=== PATIENT | male | born 1990 | race Caucasian/White ===

== ENCOUNTER 2024-12-09 19:45 | Emergency (ER) | payer OTHER, SELFPAY ==
--- OUTSIDE RECORDS SUMMARY | 2024-12-09 19:47 | XMS_ITS | Clinical Summary ---
Author Organization [facility] Address [address] [place] [address] Phone Care Team Providers Care Rolled Materials Worker Name Role Phone Provider, None Primary Care Provider Unavailabl e Allergies No known active allergies Medications albuterol (PROVENTIL HFA, VENTOLIN HFA) 108 (90 Base) MCG/ACT Aerosol Solution take 2 Puffs by inhalation every 4 hours as needed for Wheezing. Active albuterol (ACCUNEB) 0.63 MG/3ML Nebulizer Soln 0.63 mg by Nebulization route every 4 hours as needed for Wheezing. Active AMOXICILLIN PO Take by mouth. Active predniSONE (DELTASONE) 10 MG Tablet TAKE 4 TABLETS DAILY X3 DAYS THEN 3 TABLETS DAILY X3 DAYS THEN 2 TABLETS DAILY X3 DAYS THEN 1 TABLET DAILY X3 DAYS 30 Tab 9 Active azithromycin (ZITHROMAX) 250 MG Tablet 2 tab(s) daily for 1 day, then 1 tab(s) daily for days 2-5. 6 Tab 9 Active Social History Tobacco Use Types Packs/Day Years Used Date Smoking Tobacco: Every Day Cigarettes Smokeless Tobacco: Never Alcohol Use Standard Drinks/Week Comments No 0 (1 standard drink = 0.6 oz pur e alcohol) Sex and Gender Information Value Date Recorded Sex Assigned at Not on file Legal Sex Male 11:25 PM CDT Gender Identity Not on file Sexual Orientation Not on file Last Filed Vital Signs Vital Sign Reading Time Taken Comments Blood Pressure 134/64 10/26/2019 1:14 AM DISTRIBUTION SUPERINTENDENT Pulse 115 10/26/2019 1:14 AM DISTRIBUTION SUPERINTENDENT Temperature 37.6 ??C (99.7 ??F) 10/26/2019 12:[address] Respiratory Rate 23 10/26/2019 1:14 AM DISTRIBUTION SUPERINTENDENT Oxygen Saturation 92% 10/26/2019 1:14 AM DISTRIBUTION SUPERINTENDENT Inhaled Oxygen Concentration - - Weight 61.2 kg (135 lb) 10/25/2019 11:30 PM DISTRIBUTION SUPERINTENDENT Height 167.6 cm (5' 6 ) 10/25/2019 11:30 PM DISTRIBUTION SUPERINTENDENT Body Mass Index 21.79 10/25/2019 11:30 PM DISTRIBUTION SUPERINTENDENT Plan of Treatment Health Maintenance Due Date Last Done Comments Hepatitis C Virus (HCV) Screening 1989 TdaP Immunization 1989 Hepatitis B Immunization (1 of 3 - 19+ 3-dose series) 2008 Influenza Immunization (#1) 2024 SARS-COV-2 Immunization ( - 2023- season) 2024 Respiratory Syncytial Virus (RSV) Immunization (Adult) (1 - 1-dose 75+ series) 2064 Meningococcal Immunization (ACWY) Aged Out No longer eligible based on patient's age to complete this topic Pneumococcal Immunization Combined Aged Out No longer eligible based on patient's age to complete this topic Rotavirus Immunization Aged Out No lo nger eligible based on patient's age to complete this topic Care Teams Rolled Materials Worker Relationship Specialty Start Date End Date Provider, None [place] PCP - General 08/20/17
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
--- OUTSIDE RECORDS SUMMARY | 2024-12-09 19:48 | XMS_ITS | Clinical Summary ---
Author Organization [facility] Address [address] [place] [address] Care Team Providers Care Cctv Technician Name Role Phone Unavailable Primary Care Provider Unavailabl e Source Comments [facility],non-owned Affiliates and Associated Physician Practices is amultiple site organization consisting of ambulatory clinics and hospital sitesin [place], [place], [place]. This disclosure is being madepursuant to the Care Everywhere program and may not contain all information available regarding this patient. Last updated 18.[facility] Allergies No known active allergies Medications * [...] naloxone HCl (Narcan) 4 MG/0.1ML nasal spray [place] 1 (one) spray into the nose as [...] 04/23/2023 2:41 AM CDT Plan of Treatment Health Maintenance Due Date Last Done Comments HIV SCREENING 2004 HEPATITIS C SCREENING 10/01/2007 HEPATITIS B VACCINE (1 of 3 - 19+ 3-dose series) 2008 PNEUMOCOCCAL VACCINE (1 of 2 - PCV) 2008 COVID-19 VACCINE (2023-2 5 season) 2024 INFLUENZA VACCINE (#1) 2024 DEPRESSION SCREENING 11/09/2024 DTAP/TDAP/TD VACCINES (2 - T d or Tdap) 04/23/2033 04/23/2023 ZOSTER VACCINE (1 of 2) 2039 HIB VACCINE Aged Out No longer eligi ble based on patient's age to complete this topic HPV VACCINE Aged Out No longer eligi ble based on patient's age to complete this topic MENINGOCOCCAL (Group B) VACCINE Aged Out No longer eligible based on patient's age to complete this topic MENINGOCOCCAL VACCINE Aged Out No suzanne vin eligible based on patient's age to complete this topic Advance Directives * Full Code (Latest Code Status on File) Date Activated Date Inactivated Comments 04/23/2023 9:44 AM 04/24/2023 6:39 PM
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
--- OUTSIDE RECORDS SUMMARY | 2024-12-09 19:48 | XMS_ITS | Referral Summary ---
Author Organization [facility] Healthcare Address [address] [place] [address] Care Team Providers Care Analytic Programmer Name Role Phone No, Physician Primary Care Provider [phone] Annalee Rogers DPM Unavailable [phone] Allergies No known active allergies Medications albuterol [...] Current smoker Asthma 05/19/2016 Overview (02/12/2017): Asthma Social History Tobacco Use Types Packs/Day Years [...] on file Legal Sex Male 12:34 PM BYPRODUCTS MAKER Gender Identity Not on file Sexual Orientation [...] 05/02/2023 12:06 AM CDT Plan of Treatment Not on file Insurance [facility] Member Subscriber Plan / Payer (Ef fective 2022-Present) Name:Yang Perez Relation to Subscriber:Self Name:Yang Perez Payer ID:[id number] (NAIC) Group ID:Not on file Type:MEDICAID RISK OTHER Address: ATTN: CLAIMS DEPT [address] [facility] [place] [phone] Advance Directives For more information, please contact: [phone] * Full Code (Latest Code Status on File) Date Activated Date Inactivated Comments 05/02/2023 12:17 AM 05/05/2023 9:35 PM * Full Code Date Activated Date Inactivated Comments 04/30/2022 5:08 AM 05/01/2022 10:19 PM Care Teams Analytic Programmer Relationship Specialty Start Date End Date No, Physician PCP - General 05/01/23 Annalee Rogers DPM [address] [address] Consulting Physician Foot and Ankle Surg 05/05/23
[2024-12-09 19:50] VITALS: BP 134/72; PULSE 99; RESP 18; TEMP 37.2; O2SAT 100
--- NOTE | 2024-12-09 19:58 | ED_ITS ---
HPI - Dental/Oral General Chief complaint: Dental/Oral Stated complaint: jaw infection History of Present Illness HPI Narrative: patient is a male, significant past history, presents to [facility] lower dental pain facial swelling for the past 4 days. He denies associated fevers chills, has no sublingual swelling. He does have a dentist but has been unable to get in to see them thus far, prompting his EC visit. He denies any additional associated symptoms. He has been taking Tylenol as directed [id number] for pain with minimal relief. Related Data Allergies Allergy/AdvReac Type Severity Reaction Status Date / Time No Known Allergies Allergy Verified 12/09/24 19:55 Review of Systems 2 ENT: Reports as per HPI Exam 2 Const: General: cooperative, comfortable, no acute distress and poor hygiene Nutritional Appearance: average body habitus Orientation/consciousness: o riented to person Limitations: no limitations HENMT: Head: normal to inspection, No palpable skull fracture present and normocephalic Ears: hearing grossly normal bilaterally, external ears normal and TM's normal bilaterally Face and sinus: normal facial exam and sinuses nontender Teeth and gingiva: abnormal tooth and associated gingiva Teeth image: 1. Gross decay to all 3 teeth marked, swelling to the right mandible correlating with affected teeth, firm/nonfluctuant with percussion tenderness. Other: No sublingual swelling, no submental swelling or palpable node, no trismus Course Course Emergency Course: patient has abscess to the right lower dentition, follow-up with the dentist distress. Will treat with Augmentin b.i.d. for 10 days, patient is encouraged to use a probiotic [id number] diarrhea arises. Tylenol ibuprofen may be continued as directed [id number] for pain relief. Patient will contact his dentist Thursday. ER for sublingual swelling arises or if fevers are present. Patient is agreeable plan Level of Care: Express Care Visit ([id number]) Vital Signs Vital signs: Vital Signs Temperature 37.2 C 12/09/24 19:50 Pulse Rate 99 12/09/24 19:50 Respiratory Rate 18 12/09/24 19:50 Blood Pressure 134/72 12/09/24 19:50 Pulse Oximetry 100 12/09/24 19:50 Oxygen Delivery Room Air 12/09/24 19:50 Temperature 37.2 C 01/31/25 19:50 Pulse Rate 99 12/09/24 19:50 Respiratory Rate 18 12/09/24 19:50 Blood Pressure 134/72 12/09/24 19:50 Pulse Oximetry 100 12/09/24 19:50 Oxygen Delivery Room Air 12/09/24 19:50 MDM - Dental/Oral MDM Narrative Medical decision making narrative: Augmentin, APAP/ Motrin, dental follow-up, ER sublingual swelling arises or fevers are present. Patient is agreeable Differential Diagnosis Differential diagnosis: Likely gingival abscess, dental caries, toothache and dental abscess Discharge Plan Discharge Clinical Impression: Dental abscess Patient Disposition: Home, Self-Care Condition: Stable Instructions: Antibiotic Form, Dental Abscess (ED) Additional Instructions: START AND COMPLETE ORAL ANTIBIOTICS PRESCRIBED. IF HE DEVELOPS SWELLING BENEATH YOUR TONGUE, HIGH FEVERS OR HAVE ANY CONCERNS OR CONDITION IS WORSENING, PROCEED TO THE ER IMMEDIATELY. FOLLOW UP WITH A DENTIST OTHERWISE, MAY TAKE TYLENOL AND/OR IBUPROFEN DIRECTED [id number] FOR FEVERS AND DISCOMFORT Patient Language: Albanian Prescriptions: New amoxicillin-pot clavulanate 875-125 mg tablet 1 tablet PO Q12H Qty: 20 0RF Follow-up/Referrals: PHYSICIAN,MIXED CROP AND LIVESTOCK FARMER [Primary Care Provider] - Stand Alone Forms: Work/School Release IP Time of Disposition: 20:00
== END 2024-12-09 20:02 | disposition home or self-care (01) ==
PROVIDERS: Emergency Provider Nurse Practitioner Family
DX: K04.7 Periapical abscess without sinus (principal)
CPT/HCPCS: 99203; G0463

== ENCOUNTER 2025-02-06 13:49 | Emergency (ER) | payer OTHER, SELFPAY ==
[2025-02-06 13:56] VITALS: BP 139/75; PULSE 76; RESP 16; TEMP 37; O2SAT 98
--- NOTE | 2025-02-06 14:33 | ED_ITS ---
HPI - Dental/Oral General Chief complaint: Dental/Oral Stated complaint: tooth abcess Time Seen by Provider: 02/06/25 14:33 Source: patient, RN notes reviewed and old records reviewed Mode of arrival: ambulatory Limitations: no limitations History of Present Illness HPI Narrative: 34-year-old male presents to the [facility] with complaints of left lower dental pain, abscess. Had similar back in November has not followed up with a dental provider multiple decayed teeth Related Data Allergies Allergy/AdvReac Type Severity Reaction Status Date / Time No Known Allergies Allergy Verified 02/06/25 13:59 Review of Systems 2 Review of Systems: All systems reviewed & are unremarkable except as noted in HPI and below Constitutional: Constitutional: Reports no additional constitutional complaints ENT: Reports as per HPI and Reports dental pain Cardiovascular: Cardiovascular: Reports no additional cardiovascular complaints, Denies chest pain and Denies dyspnea Respiratory: Respiratory: Reports no additional respiratory complaints, Denies chest congestion, Denies cough and Denies dyspnea Musculoskeletal: Musculoskeletal: Reports no additional musculoskeletal complaints Integumentary/Breasts: Skin/Breast: Reports system reviewed and no additional complaints, except as docu PMFSH Comments At the time of my signature, I reviewed and agree with the nursing past medical, surgical, social, and family history. There is no relevant family history pertinent to the patient complaint. Exam 2 Const: General: cooperative, no acute distress, well developed, alert, uncomfortable and well nourished Nutritional Appearance: well nourished O rientation/consciousness: patient oriented x3 Limitations: no limitations HENMT: Head: normal to inspection Ears: hearing grossly normal bilaterally, external ears normal, TM's normal bilaterally, EAC's normal, mastoids normal and no periauricular adenopathy Mouth: Yes Normal oral and palatal mucosa present Teeth and gingiva: poor dentition ( throughout) Teeth image: 1. decayed, swollen gingiva Throat: posterior oropharynx normal, uvula midline and no uvular edema Eyes: General: appearance normal, both eyes and all related structures A lignment and Position: alignment normal Neck: Neck: normal visual inspection, full ROM, no lymphadenopathy and no meningeal signs Chest: Chest palpation & inspection: normal inspection of the chest Resp: Effort & Inspection: normal respiratory effort and able to speak in complete sentences Cardio: Rate: regular rate Skin: General skin exam: normal color and no rashes or lesions noted Neuro: General: patient oriented x3, gait normal, moves all extremities and no meningeal signs Cognition (Neuro): normal cognition Speech: normal speech Gait exam (Neuro): Normal gait present Extrem: General: normal to inspection, full ROM, capillary refill normal and normal gait Psych: Appearance: grossly normal and well kempt Mental Status: mental status grossly normal Speech and movement: Normal speech and movement present and Clear speech present Affect: normal affect Attitude: cooperative Course Course Level of Care: Express Care Visit Vital Signs Vital signs: Vital Signs Temperature 98.6 F 02/06/25 13:56 Pulse Rate 76 02/06/25 13:56 Respiratory Rate 16 02/06/25 13:56 Blood Pressure 139/75 02/06/25 13:56 Pulse Oximetry 98 02/06/25 13:56 Oxygen Delivery Room Air 02/06/25 13:56 Temperature 98.6 F 02/06/25 13:56 Pulse Rate 76 02/06/25 13:56 Respiratory Rate 16 02/06/25 13:56 Blood Pressure 139/75 02/06/25 13:56 Pulse Oximetry 98 02/06/25 13:56 Oxygen Delivery Room Air 02/06/25 13:56 Reviewed MDM - Dental/Oral MDM Narrative Medical decision making narrative: patient sitting in exam room. Nontoxic, vitals stable. Patient in no acute distress. Patient presents with a dental abscess, appropriate for outpatient treatment with antibiotic and close follow-up Discharge instructions reviewed with patient, as well as provided in writing per nursing staff. The instructions also include specific and strict return/GO TO THE ER as well as f/u information. All questions have been answered, and the patient deny any further questions with discharge and discharge plan. Some parts of this dictation were generated by voice recognition software and may contain typographical and/or grammatical inaccuracies. Differential Diagnosis Differential diagnosis: Likely gingival abscess, dental caries, toothache and dental abscess Critical Care Time Critical Care Time Critical Care Time: No Discharge Plan Discharge Clinical Impression: Dental abscess Patient Disposition: Home, Self-Care Condition: Stable Instructions: Antibiotic Form, Dental Abscess (ED) Additional Instructions: Finish the entire course of antibiotics & use a good mouthwash. After every time you eat be sure to use salt water rinses and brush your teeth Apply ice to face to help with pain. Take Tylenol alternating with Motrin as needed for pain. You can alternate every 4 hours You need to follow-up with a dental provider as soon as possible for further evaluation and treatment. A list of dental providers has been given to you Follow up with a Primary Care Provider (PCP) about medical needs. A PCP can help keep you healthy by preventive medicine and screening. Go to the ER for New or worsening symptoms. Patient Language: Indonesian Prescriptions: New clindamycin HCl [Cleocin HCl] 300 mg capsule 300 mg PO TID 7 Days Qty: 21 0RF Follow-up/Referrals: PHYSICIAN,WELDER APPRENTICE GAS [Primary Care Provider] - Time of Disposition: 14:42
--- OUTSIDE RECORDS SUMMARY | 2025-02-06 15:11 | XMS_ITS | Referral Summary ---
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 Gender Identity Not on file Sexual Orientation Not on file Last Filed Vital Signs Vital Sign Reading Time Taken Comments Blood Pressure 116/61 05/05/2023 3:00 PM CDT Pulse 85 05/05/2023 3:00 PM CDT Temperature 37.3 C (99.1 F) 05/05/2023 3:00 PM CDT Respiratory Rate 18 05/05/2023 3:00 PM CDT Oxygen Saturation 99% 05/05/2023 3:00 PM CDT Inhaled Oxygen Concentration - - Weight 56.2 kg (123 lb 14.4 oz) 023 12:06 AM CDT Height 172.7 cm (5' 8 ) 05/02/2023 12:0 6 AM CDT Body Mass Index 18.84 05/02/2023 12:06 AM CDT Plan of Treatment Not on file Insurance [facility] Advance Directives For more information, please contact: [phone] * Full Code (Latest Code Status on File) Date Activated Date Inactivated Comments 05/02/2023 12:17 AM 05/05/2023 9:35 PM * Full Code Date Activated Date Inactivated Comments 04/30/2022 5:08 AM 05/01/2022 10:19 PM Care Teams Financial Services Director Relationship Specialty Start Date End Date No, Physician PCP - General 05/01/23 Annalee Rogers DPM [address] [address] Consulting Physician Foot and Ankle Surg 05/05/23
--- OUTSIDE RECORDS SUMMARY | 2025-02-06 15:11 | XMS_ITS | Clinical Summary ---
Author Organization [facility] Address [address] [place] [address] Phone Care Team Providers Care Parking Line Painter Name Role Phone Provider, None Primary Care [...] Comments Blood Pressure 134/64 10/26/2019 1:14 AM FRETTED INSTRUMENT REPAIRER Pulse 115 10/26/2019 1:14 AM FRETTED INSTRUMENT REPAIRER Temperature 37.6 C (99.7 F) 10/26/2019 12:03 AM FRETTED INSTRUMENT REPAIRER Respiratory Rate 23 10/26/2019 1:14 AM FRETTED INSTRUMENT REPAIRER Oxygen Saturation 92% 10/26/2019 1:14 AM FRETTED INSTRUMENT REPAIRER Inhaled Oxygen Concentration - - Weight 61.2 kg (135 lb) 10/25/2019 11:30 PM FRETTED INSTRUMENT REPAIRER Height 167.6 cm (5' 6 ) 10/25/2019 11:30 PM FRETTED INSTRUMENT REPAIRER Body Mass Index 21.79 10/25/2019 11:30 PM FRETTED INSTRUMENT REPAIRER Plan of Treatment Health Maintenance Due Date [...] age to complete this topic Care Teams Parking Line Painter Relationship Specialty Start Date End Date Provider, None [place] PCP - General 08/20/17
--- OUTSIDE RECORDS SUMMARY | 2025-02-06 15:11 | XMS_ITS | Clinical Summary ---
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 Gender Identity Not on file Sexual [...] Depression Screening 1989 Hepatitis C Screening 1989 Varicella Vaccines (1 of 2 - 13+ 2-dose series) 2002 Hepatitis B Screening 2007 Regular Well Visit/Exam 18-64 2007 Pneumococcal vaccine <65 (1 of 2 - PCV) 2008 Influenza Vaccine (#1) 2024 DTaP/Tdap/Td Vaccine (2 - Td or Tdap) 04/23/2033 04/23/2023 HPV Vaccines Aged Out No longer eligi ble based on patient's age to complete this topic Insurance Member Subscriber Plan / Payer (Ef fective 2021-Present) Name:Yang Perez Relation to Subscriber:Self Name:Yang Perez Payer ID:[id number] (NAIC) Group ID:Not on file Type:MEDICAID RISK OTHER [address]: [address] [place] [address] [place] [address] [place] Advance Directives For more information, please contact: [phone] * Full Code (Latest Code Status on File) Date Activated Date Inactivated Comments 05/02/2023 12:17 AM 05/05/2023 9:35 PM * Full Code Date Activated Date Inactivated Comments 04/30/2022 5:08 AM 05/01/2022 10:19 PM Care Teams Java Developer Analyst Relationship Specialty Start Date End Date No, Physician PCP - General 05/01/23 Annalee Rogers, TINA [address] [facility] [address] [place] [address] Consulting Physician Foot and Ankle Surg 05/05/23
--- OUTSIDE RECORDS SUMMARY | 2025-02-06 15:11 | XMS_ITS | Clinical Summary ---
Author Organization [facility] Address [address] [place] [address] Care Team Providers Care Box Maker Wood Name Role Phone Unavailable Primary Care Provider Unavailabl e Source Comments [facility],non-owned Affiliates and Associated Physician Practices is amultiple site organization consisting of ambulatory clinics and hospital sitesin [place], [place], [place] and [place]. This disclosure is being madepursuant to the Care Everywhere program and may not contain all information available regarding this patient. Last updated 18.[facility] Allergies No known active allergies Medications * [...] naloxone HCl (Narcan) 4 MG/0.1ML nasal spray [place] 1 (one) spray into the nose as [...] 59 04/24/2023 7:34 AM CDT Temperature 36.7 C (98.1 F) 04/24/2023 7:34 AM CDT Respiratory Rate 18 04/24/2023 7:34 AM CDT [...] to complete this topic MENINGOCOCCAL (Group B) VACC INE SHARED DECISION-MAKING Aged Out No longer eligibl e based on patient's age to complete this topic MENINGOCOCCAL GROUPS A/C/Y/W VACCINE Aged Out No longer eligible b ased on patient's age to complete this topic Advance Directives * Full Code (Latest Code Status on File) Date Activated Date Inactivated Comments 04/23/2023 9:44 AM 04/24/2023 6:39 PM
== END 2025-02-06 14:46 | disposition home or self-care (01) ==
PROVIDERS: Emergency Provider Nurse Practitioner
DX: K04.7 Periapical abscess without sinus (principal)
CPT/HCPCS: 99213; G0463

== ENCOUNTER 2025-09-07 11:48 | Emergency (ER) | payer OTHER, SELFPAY ==
[2025-09-07 11:55] VITALS: BP 133/62; PULSE 94; RESP 18; TEMP 37.2; O2SAT 98
--- NOTE | 2025-09-07 12:12 | ED.SKABFB ---
HPI - Skin/Abscess/Foreign Bdy General Chief complaint: Skin/Abscess/Foreign Body Stated complaint: infection on side Time Seen by Provider: 09/07/25 12:12 Source: patient, RN notes reviewed and old records reviewed Mode of arrival: ambulatory Limitations: no limitations History of Present Illness HPI narrative: 34-year-old male presents to the [facility] with a 10 day history of redness , pain, increased warmth to the right hip. Onset (ago): day(s) (10) Treatments prior to arrival: none Related Data Home Medications ?Medication ?Instructions ?Recorded ?Confirmed ?Last Taken ?Type No Home Medications 09/07/25 Unknown History Allergies Allergy/AdvReac Type Severity Reaction Status Date / Time amoxicillin Allergy Unknown Unknown Verified 09/07/25 12:00 Review of Systems Review of Systems: All systems reviewed & are unremarkable except as noted in HPI and below Constitutional: Constitutional: Reports no additional constitutional complaints Cardiovascular: Cardiovascular: Reports no additional cardiovascular complaints, Denies chest pain and Denies dyspnea Respiratory: Respiratory: Reports no additional respiratory complaints, Denies chest congestion, Denies cough and Denies dyspnea Musculoskeletal: Musculoskeletal: Reports as per HPI, Reports arthralgias ( right hip) and Reports joint swelling ( right hip) Integumentary/Breasts: Skin/Breast: Reports as per HPI, Reports erythema, Reports skin pain and Reports skin swelling PMFSH Comments At the time of my signature, I reviewed and agree with the nursing past medical, surgical, social, and family history. There is no relevant family history pertinent to the patient complaint. Exam Const: General: cooperative, no acute distress, well developed, alert, ill appearing chronically, poor hygiene, tired appearing, uncomfortable and well nourished Nutritional Appearance: well nourished Orientation/consciousness: patient oriented x3 Limitations: no limitations HENMT: Head: normal to inspection Eyes: General: appearance normal, both eyes and all related structures Alignment and Position: alignment normal Neck: Neck: normal visual inspection, full ROM, no lymphadenopathy and no meningeal signs Chest: Chest palpation & inspection: normal inspection of the chest Resp: Effort & Inspection: normal respiratory effort and able to speak in complete sentences Cardio: Rate: regular rate GI: GI Palp: No abdominal tenderness Skin: General skin exam: normal color and no rashes or lesions noted Full body images:  1. 18 x 19 cm redness, center firm swelling measures 15 x 16 cm. area is hot to touch. Tender to palpation. Neuro: General: patient oriented x3, gait normal, moves all extremities and no meningeal signs Cognition (Neuro): normal cognition Speech: normal speech Gait exam (Neuro): Normal gait present Extrem: General: normal to inspection, full ROM, capillary refill normal and normal gait Right lower extremity: hip/thigh Details: tenderness, swelling, abnormal ROM Details: pain with active ROM during and warmth; no deformity Psych: Appearance: grossly normal and well kempt Mental Status: mental status grossly normal Speech and movement: Normal speech and movement present and Clear speech present Affect: normal affect Attitude: cooperative Course Course Level of Care: Express Care Visit Vital Signs Vital signs: Vital Signs Temperature 99.0 F 09/07/25 11:55 Pulse Rate 94 09/07/25 11:55 Respiratory Rate 18 09/07/25 11:55 Blood Pressure 133/62 09/07/25 11:55 Pulse Oximetry 98 09/07/25 11:55 Oxygen Delivery Room Air 09/07/25 11:55 Temperature 99.0 F 09/07/25 11:55 Pulse Rate 94 09/07/25 11:55 Respiratory Rate 18 09/07/25 11:55 Blood Pressure 133/62 09/07/25 11:55 Pulse Oximetry 98 09/07/25 11:55 Oxygen Delivery Room Air 09/07/25 11:55 Reviewed Transfer Transfered to: [facility]) ( Per patient request) Transportation: Other ( POV per patient request, declined EMS) Transfer rationale: patient with significant cellulitis, concern for abscess in the right hip sending for higher level of care Accepting physician: Wilmer garcia MDM - Skin/Abscess/Foreign Bdy MDM Narrative Medical decision making narrative: patient appears uncomfortable sitting in exam room. Patient with significant cellulitis to the right hip for 10 days. Sending for higher level of care rule out abscess. Transfer instructions reviewed with patient not to eat or drink. EMS was offered patient declined. All questions have been answered, and the patient deny any further questions Some parts of this dictation were generated by voice recognition software and may contain typographical and/or grammatical inaccuracies. Differential Diagnosis Differential diagnosis: Likely abscess of skin or subcutaneous tissue, urticaria, herpes zoster, allergic reaction to drug, cellulitis, eczema and contact dermatitis Critical Care Time Critical Care Time Critical Care Time: No Discharge Plan Discharge Clinical Impression: Cellulitis Qualifiers: Site of cellulitis: extremity Site of cellulitis of extremity: lower extremity Laterality: right Qualified Code(s): L03.115 - Cellulitis of right lower limb Patient Disposition: Acute Care Hospital Condition: Stable Instructions: Antibiotic Form Patient Language: Finnish Prescriptions: No Action No Home Medications Follow-up/Referrals: PHYSICIAN,MACHINE MAINTENANCE TECHNICIAN [Primary Care Provider, Internal Medicine]
--- OUTSIDE RECORDS SUMMARY | 2025-09-07 12:51 | XMS_ITS | Clinical Summary ---
Author Organization [facility] Address [address] [place] [address] Phone Care Team Providers Care Shell Coremaker Name Role Phone Provider, None Primary Care [...] Comments Blood Pressure 134/64 10/26/2019 1:14 AM FIRE EXTINGUISHER TESTER Pulse 115 10/26/2019 1:14 AM FIRE EXTINGUISHER TESTER Temperature 37.6 C (99.7 F) 10/26/2019 12:03 AM FIRE EXTINGUISHER TESTER Respiratory Rate 23 10/26/2019 1:14 AM FIRE EXTINGUISHER TESTER Oxygen Saturation 92% 10/26/2019 1:14 AM FIRE EXTINGUISHER TESTER Inhaled Oxygen Concentration - - Weight 61.2 kg (135 lb) 10/25/2019 11:30 PM FIRE EXTINGUISHER TESTER Height 167.6 cm (5' 6) 10/25/2019 11:30 PM FIRE EXTINGUISHER TESTER Body Mass Index 21.79 10/25/2019 11:30 PM FIRE EXTINGUISHER TESTER Plan of Treatment Health Maintenance Due Date Last Done Comments Hepatitis C Virus (HCV) Screening 1989 TdaP Immunization 1989 Hepatitis B Immunization (1 of 3 - 19+ 3-dose series) 2008 Human Papillomavirus (HPV) Immunization (1 - 3-dose SCDM series) 2016 Influenza Immunization (#1) 2025 SARS-COV-2 Immunization ( - 2023- season) 2025 Respiratory Syncytial Virus (RSV) Immunization (Adult) (1 - 1-dose 75+ series) 2064 Meningococcal Immunization (ACWY) Aged Out No longer eligible based on patient's age to complete this topic Pneumococcal Immunization Combined Aged Out No longer eligible based on patient's age to complete this topic Rotavirus Immunization Aged Out No lo nger eligible based on patient's age to complete this topic Care Teams Shell Coremaker Relationship Specialty Start Date End Date Provider, None [place] PCP - General 08/20/17
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
--- OUTSIDE RECORDS SUMMARY | 2025-09-07 12:52 | XMS_ITS | Clinical Summary ---
Author Organization [facility] Healthcare Address [address] [place] [address] Care Team Providers Care Trial Management Associate Name Role Phone No, Physician Primary Care Provider [phone] Annalee Rogers DPM Unavailable [phone] Allergies No known active allergies Medications albuterol HFA (PROVENTIL HFA,VENTOLIN HFA,PROAIR HFA) 90 mcg/actuation inhaler Inhale 2 puffs every 6 (six) hours as needed for wheezing Active acetaminophen (TYLENOL) 500 mg tablet Take 2 tablets (1,000 mg total) by mouth every 6 (six) hours 04/24/[address] (PROTONIX) 20 mg EC tablet Take 1 tablet (20 mg total) by mouth daily 30 tablet 07/15/2025 Active Active Problems Problem Noted Date Diagnosed Date VICKIE (acute kidney injury) 05/05/2023 Substance use disorder 05/05/2023 Cellulitis of left lower extremity 05/01/2023 Respiratory distress 04/30/2022 Clavicle pain 05/19/2016 Overview (02/12/2017): Clavicle pain Shoulder pain 05/19/2016 Overview (02/12/2017): Shoulder pain Current smoker 05/19/2016 Overview (02/12/2017): Current smoker Asthma 05/19/2016 Overview (02/12/2017): Asthma Encounters Date Type Department Care Team Description 07/21/2025 9:44 PM CDT - 07/21/2025 11:25 PM CDT Emergency [facility] Emergency Department [address] [place] [address] Discharge Disposition: Left without being seen 07/15/2025 7:11 AM CDT - 07/15/2025 11:34 AM CDT Emergency [facility] Emergency Department [address] [place] [address] Edd Moore MD Abdominal pain of unknown etiology (Primary Dx); Urinary tract infection in male Discharge Disposition: Discharge to home or self care 07/15/2025 6:55 AM CDT - 07/15/2025 11:59 PM CDT Hospital Encounter [facility] Emergency, Room R Discharge Disposition: Discharge to home or self care from Last 3 Months Surgical History Surgery Date Site/Laterality Comments HERNIA [...] making you feel afraid or unsafe? Denies 07/21/2025 Sex and Gender Information Value Date Recorded Sex Assigned at Not on file Legal Sex Male 12:34 PM [employer] Gender Identity Not on file Sexual Orientation Not on file Obstetrics History Last Filed Vital Signs Vital Sign Reading Time Taken Comments Blood Pressure 157/83 07/21/2025 9:49 PM CDT Pulse 103 07/21/2025 9:49 PM CDT Temperature 37.2 C (98.9 F) 07/21/2025 9:49 PM CDT Respiratory Rate 18 07/21/2025 9:49 PM CDT Oxygen Saturation 95% 07/21/2025 9:49 PM CDT Inhaled Oxygen Concentration - - Weight 59 kg (130 lb) 07/21/2025 9:49 PM CDT Height 165.1 cm (5' 5) 07/21/2025 9:49 PM CDT Body Mass Index 21.63 07/21/2025 9:49 PM CDT Plan of Treatment Health Maintenance Due Date Last Done Comments Depression Screening 1989 Hepatitis C Screening 1989 Varicella Vaccines (1 of 2 - 13+ 2-dose series) 2001 Hepatitis B Screening 2007 Regular Well Visit/Exam 18-64 2007 Pneumococcal vaccine <65 (1 of 2 - PCV) 2008 HPV Vaccines (1 - 3-dose SCDM series) 2016 Influenza Vaccine (#1) 2025 DTaP/Tdap/Td Vaccine (2 - Td or Tdap) 04/23/2033 Procedures Procedure Name Priority Date/Time Associated Diagnosis Comments ECG 12-LEAD Routine 07/21/2025 9:[address] CHEST ABDOMEN PELVIS W CONTRAST ED 07/15/2025 10:14 AM CDT EGFR STAT 07/15/2025 8:39 AM CDT DIFFERENTIAL AUTO STAT 07/15/2025 8:3 9 AM CDT SEPSIS LACTATE WITH REFLEX STAT 07/15/2025 8:39 AM CDT LIPASE STAT 07/15/2025 8:39 AM CDT CBC WITH AUTO DIFFERENTIAL STAT 07/15/2025 8:39 AM CDT COMPREHENSIVE METABOLIC PANEL STAT 07/15/2025 8:39 AM CDT URINALYSIS, MICROSCOPIC ONLY STAT 07/15/2025 8:25 AM CDT DRUGS OF ABUSE SCREEN, URINE WITHOUT CONFIRMATION STAT 07/15/2025 8:25 AM CDT URINE CULTURE STAT 07/15/2025 8:25 AM CDT URINALYSIS AND REFLEX TO MICROSCOPIC AND CULTURE STAT 07/15/2025 8:25 AM CDT from Last 3 Months Results * ECG 12 lead (07/21/2025 9:54 PM CDT) 07/21/2025 9:54 PM CDT Narrative [facility] - 07/22/2025 10:43 AM CDT Vent Rate: 97 bpm RR Interval: 614 msec AR Interval: 117 msec QRS Duration: 76 msec QT Interval: 333 msec QTC Interval: 388 msec P-R-T Lyons: 71 - 66 - 57 degrees IMPRESSION: SINUS RHYTHM WITH SHORT AR INTERVAL BORDERLINE ECG NO CHANGE FROM PREVIOUS TRACING NOTED Electronically Signed By: Alejandro Lopez MD us Randy WATERS ECG ORDERABLES Final Result [facility] * CT Chest Abdomen Pelvis W Contrast (07/15/2025 10:14 AM CDT) Anatomical Region Laterality Modality Body N/A Computed Tomogra phy 07/15/2025 10:3 6 AM CDT Narrative 07/15/2025 10:42 AM CDT EXAM DESCRIPTION: CT CHEST ABDOMEN PELVIS W CONTRAST REASON FOR STUDY: Sepsis Low abdomen pain that started this am, trouble urinating TECHNIQUE: CT scan of the chest, abdomen, and pelvis performed with intravenous and without oral contrast using helical scanning technique with dynamic intravenous contrast injection. Reconstructed coronal and sagittal MPR images reviewed. All images stored on PACS. Automated exposure control was used as a dose optimization technique for this examination. CONTRAST TYPE/DOSE: 100mL of IOVERSOL 350 MG IODINE/ML INTRAVENOUS SYRINGE injected via intravenous COMPARISON: CT dated April 30, 2022 FINDINGS: CHEST LUNGS: No nodules or masses. No pneumonia. PLEURA: No effusion. No pneumothorax. MEDIASTINUM/MARCOS: No identified masses or abnormal nodes. HEART: Heart size is normal with no pericardial effusion. VASCULATURE CHEST: No thoracic aortic aneurysm or dissection. AXILLA: Subcentimeter axillary lymph nodes. CHEST WALL: No masses. No subcutaneous air. HARDWARE/LINES/TUBES: None. MUSCULOSKELETAL CHEST: No significant abnormality. ABDOMEN/PELVIS LIVER: Normal size. No identified cystic or solid masses. GALLBLADDER: No stones identified. No wall thickening or inflammatory changes. BILE DUCTS: No intrahepatic or extrahepatic ductal dilatation. SPLEEN: Normal size. No focal lesions. PANCREAS: No identified cystic or solid masses. No significant calcifications. No adjacent inflammation or peripancreatic fluid collections. Pancreatic duct not dilated. ADRENALS: Normal. KIDNEYS/URINARY TRACT: No identified significant cystic or solid masses. No visualized stones. No hydronephrosis or hydroureter. Symmetric enhancement. Urinary bladder is unremarkable. GI: No dilated bowel loops. No obvious wall thickening. Normal appendix. No significant diverticular disease. PERITONEUM: No ascites or free air. RETROPERITONEUM: No mass or adenopathy. REPRODUCTIVE: No significant abnormality. VASCULATURE ABDOMEN: No abdominal aortic aneurysm. MUSCULOSKELETAL ABDOMEN PELVIS: No acute finding. OTHER: No significant abnormality. IMPRESSION: 1. No acute findings identified to suggest etiology of the patient's symptoms. THIS IS AN ELECTRONICALLY VERIFIED FINAL REPORT 07/15/2025 10:42 AM - Electronically signed by Rickey Crain M.D. JA: NAYANA Report ID: [id number] Reading Location: [id number] Procedure Note Rickey Crain MD - 07/15/2025 EXAM DESCRIPTION: CT CHEST ABDOMEN PELVIS W CONTRAST REASON FOR STUDY: Sepsis Low abdomen pain that started this am, trouble urinating TECHNIQUE: CT scan of the chest, abdomen, and pelvis performed with intravenous and without oral contrast using helical scanning techniquewith dynamic intravenous contrast injection. Reconstructed coronal and sagittalMPR images reviewed. All images stored on PACS. Automated exposure control was used as a dose optimization technique for this examination. CONTRAST TYPE/DOSE: 100mL of IOVERSOL 350 MG IODINE/ML INTRAVENOUS SYRINGE injected via intravenous COMPARISON: CT dated April 30, 2022 FINDINGS: CHEST LUNGS: No nodules or masses. No pneumonia. PLEURA: No effusion. No pneumothorax. MEDIASTINUM/MARCOS: No identified masses or abnormal nodes. HEART: Heart size is normal with no pericardial effusion. VASCULATURE CHEST: No thoracic aortic aneurysm or dissection. AXILLA: Subcentimeter axillary lymph nodes. CHEST WALL: No masses. No subcutaneous air. HARDWARE/LINES/TUBES: None. MUSCULOSKELETAL CHEST: No significant abnormality. ABDOMEN/PELVIS LIVER: Normal size. No identified cystic or solid masses. GALLBLADDER: No stones identified. No wall thickening or inflammatory changes. BILE DUCTS: No intrahepatic or extrahepatic ductal dilatation. SPLEEN: Normal size. No focal lesions. PANCREAS: No identified cystic or solid masses. No significant calcifications. No adjacent inflammation or peripancreatic fluidcollections. Pancreatic duct not dilated. ADRENALS: Normal. KIDNEYS/URINARY TRACT: No identified significant cystic or solid masses.No visualized stones. No hydronephrosis or hydroureter. Symmetricenhancement. Urinary bladder is unremarkable. GI: No dilated bowel loops. No obvious wall thickening. Normalappendix. No significant diverticular disease. PERITONEUM: No ascites or free air. RETROPERITONEUM: No mass or adenopathy. REPRODUCTIVE: No significant abnormality. VASCULATURE ABDOMEN: No abdominal aortic aneurysm. MUSCULOSKELETAL ABDOMEN PELVIS: No acute finding. OTHER: No significant abnormality. IMPRESSION: 1. No acute findings identified to suggest etiology of the patient's symptoms. THIS IS AN ELECTRONICALLY VERIFIED FINAL REPORT 07/15/2025 10:42 AM - Electronically signed by Rickey Crain M.D. JA: NAYANA Report ID: [id number] Reading Location: [id number] Edd Moore MD IMG CT PROCEDURES Final Resu lt * Sepsis Lactate w/ Reflex (07/15/2025 8:39 AM CDT) Sepsis Lactate 1.7 0.7 - 2.0 mmol/L Blood 07/15/2025 8:39 AM CDT 07/15/2025 8:44 AM CDT Edd Moore MD LAB BLOOD ORDERABLES Final R esult Performing Organization Address City/[facility]/ZIP Co de Phone Number VALERIA WR[facility] ([place]) [address] [facility] [email or web address] [address] * eGFR (07/15/2025 8:39 AM CDT) eGFR >90 >=60 mL/min/1. 73 m2 Comment: Interpretive Data Reference Interval Normal >/= 90 mL/min/1.73m2 Mildly decreased* 60 - 89 mL/min/1.73m2 Mildly to moderately decreased 45 - 59 mL/min/1.73m2 Moderately to severely decreased 30 - 44 mL/min/1.73m2 Severely decreased 15 - 29 mL/min/1.73m2 Kidney Failure < 15 mL/min/1.73m2 *Relative to young adult level Estimated glomerular filtration rate is determined by the 2020 CKD-EPI equation recommended by the National Kidney Foundation (A Unifying Approach to GFR Estimation: Recommendations of the NKF-ASK Task Force on Reassessing the Inclusion of Race in Diagnosing Kidney Disease, JASN 2020). The CKD-EPI equation should not be used for patients with unstable renal function and has not been validated in children and those over 70. Current interpretive data was last reviewed 2021. Blood 07/15/2025 8:39 AM CDT 07/15/2025 8:44 AM CDT Edd Moore MD LAB BLOOD ORDERABLES Final R esult [facility] ([place]) 1 [facility] Department [place] [address] * (ABNORMAL) Differential, auto (07/15/2025 8:39 AM CDT) Neutrophil abs 14.05(H) 1.50 - 6.50 K/cumm Imm gran abs 0.11(H) 0.00 - 0.10 K/cumm [facility] ([place]) Lymphocyte abs 1.73 0.80 - 3.30 K/cumm [facility] ([place]) Monocyte abs 0.58 0.20 - 0.80 K/cumm [facility] ([place]) Eosinophil abs 0.07 0.00 - 0.50 K/cumm [facility] ([place]) Basophil abs 0.07 0.00 - 0.10 K/cumm [facility] ([place]) Neutrophil pct 84.6 % [facility] ([place]) Comment: Interpretive Data Percent cell count reference ranges are not reported, since discordance with absolute values may lead to misinterpretation of CBC data. Current Interpretive Data was last revised on 2018. Imm gran pct 0.7 % [facility] ([place]) Comment: Interpretive Data Percent cell count reference ranges are not reported, since discordance with absolute values may lead to misinterpretation of CBC data. Current Interpretive Data was last revised on 2018. Lymphocyte pct 10.4 % [facility] ([place]) Comment: Interpretive Data Percent cell count reference ranges are not reported, since discordance with absolute values may lead to misinterpretation of CBC data. Current Interpretive Data was last revised on 2018. Monocyte pct 3.5 % [facility] ([place]) Comment: Interpretive Data Percent cell count reference ranges are not reported, since discordance with absolute values may lead to misinterpretation of CBC data. Current Interpretive Data was last revised on 2018. Eosinophil pct 0.4 % [facility] ([place]) Comment: Interpretive Data Percent cell count reference ranges are not reported, since discordance with absolute values may lead to misinterpretation of CBC data. Current Interpretive Data was last revised on 2018. Basophil pct 0.4 % [facility] ([place]) Comment: Interpretive Data Percent cell count reference ranges are not reported, since discordance with absolute values may lead to misinterpretation of CBC data. Current Interpretive Data was last revised on 2018. Blood 07/15/2025 8:39 AM CDT 07/15/2025 8:44 AM CDT us Edd Moore MD LAB BLOOD ORDERABLES Final R esult [facility] ([place]) 1 [facility] Department [place] [address] * (ABNORMAL) CBC with auto differential (07/15/2025 8:39 AM CDT) Pathologist [facility] WBC 16.61(H) 3.80 - 9.90 K/cumm Hgb 12.9(L) 13.0 - 17.5 g/dL [facility] ([place]) Hct 39.4 38.9 - 50.3 % [facility] ([place]) Plt 307 150 - 400 K/cumm [facility] ([place]) MPV 9.4 9.1 - 12.3 fL [facility] [place]) RBC 4.30 4.30 - 5.80 M/cumm [facility] ([place]) MCV 91.6 81.3 - 96.4 fL [facility] [place]) MCH 30.0 27.1 - 33.3 pg [facility] [place]) MCHC 32.7 32.3 - 35.7 g/dL [facility] [place]) RDW CV 13.2 11.1 - 14.9 % [facility] ([place]) RDW SD 44.8 35.7 - 48.1 fL [facility] [place]) NRBC abs 0.00 0.00 - 0.01 K/cumm [facility] [place]) Blood 07/15/2025 8:39 AM CDT 07/15/2025 8:44 AM CDT Edd Moore MD LAB BLOOD ORDERABLES Final R esult [facility] ([place]) 1 [facility] Department [place] [address] * Lipase (07/15/2025 8:39 AM CDT) Pathologist [facility] Lipase 15 10 - 99 Units/L [facility] ([place]) Blood 07/15/2025 8:39 AM CDT 07/15/2025 8:44 AM CDT Edd Moore MD LAB BLOOD ORDERABLES Final R esult [facility] ([place]) 1 [facility] Department [place] [address] * (ABNORMAL) Comprehensive metabolic panel (07/15/2025 8:39 AM CDT) Sodium 139 135 - 145 mmol/L [facility] ([place]) Potassium, pl 4.2 3.3 - 4.9 mmol/L [facility] [place]) Chloride 101 97 - 110 mmol/L [facility] [place]) CO2 25 22 - 32 mmol/L [facility] [place]) Anion gap 13 2 - 15 mmol/L [facility] [place]) BUN 17 6 - 25 mg/dL [facility] [place]) Creatinine 1.09 0.80 - 1.30 mg/dL [facility] ([place]) Glucose 185 70 - 199 mg/dL [facility] ([place]) Comment: Interpretive Data Fasting glucose >/= 126 mg/dl is diagnostic for diabetes. Fasting is defined as no caloric intake for at least 8 hours. Fasting glucose between 100 mg/dl to 125 mg/dl is diagnostic of prediabetes. In a patient with classic symptoms of hyperglycemia or hyperglycemic crisis, a random glucose >/= 200 mg/dl is diagnostic for diabetes. In the absence of unequivocal hyperglycemia, results should be confirmed by repeat testing. The classification and Diagnosis of Diabetes Diabetes Care 2021; 46: S19-S40. Current interpretive data was last revised 2022. Calcium 10.3 8.5 - 10.3 mg/dL [facility]) Bilirubin, total 0.3 0.1 - 1.2 mg/dL [facility] ([place]) Protein, pl 8.1 6.5 - 8.5 g/dL [facility] ([place]) Albumin 4.5 3.5 - 5.0 g/dL [facility] ([place]) Alk phos 74 40 - 130 Units/L [facility] [place]) ALT 95(H) 7 - 55 Units/L [facility] [place]) AST 70(H) 10 - 50 Units/L [facility] ([place]) Blood 07/15/2025 8:39 AM CDT 07/15/2025 8:44 AM CDT Edd Moore MD LAB BLOOD ORDERABLES Final R esult Performing Organization Address City/[facility]/ZIP Co de Phone Number VALERIA WR[facility] ([place]) 1 [facility] Department [place] [address] * (ABNORMAL) Urinalysis reflex to microscopic and culture Urine (07/15/2025 8:25 AM CDT) Color, ur Yellow Yellow Clarity, ur Turbid(A) Clear [facility] ([place]) Specific gravity, ur 1.018 1.003 - 1.030 [facility] ([place]) pH, urine 7.5 [facility] [place]) Comment: Interpretive Data U rine pH is affected by diet, medications, systemic acid-base disturbances, and renal tubular function. pH may affect urinary stone formation. For example, urine pH below 6.0 may help reduce the tendency for calcium phosphate stones and pH greater than 6.0 may reduce the tendency for uric acid stone formation. Source: [email or web address] Current Interpretive Data was last revised on 2017 Protein, ur ql Negative Negative [facility] [place]) Glucose, ur ql Negative Negative [facility] ([place]) Ketones, ur Negative Negative [facility] ([place]) Bilirubin, ur Negative Negative [facility] ([place]) Blood, ur 2+(A) Negative [facility] ([place]) Urobilinogen, ur <2.0 <2.0 mg/dL [facility] ([place]) Nitrite, ur Negative Negative [facility] ([place]) Leukocyte esterase, ur Negative Negative [facility] ([place]) UA reflex comment Reflex to microscopic UA will be performed. [facility] ([place]) Urine 07/15/2025 8:25 AM CDT 07/15/2025 10:06 AM CDT Edd Moore MD LAB MICROBIOLOGY - GENERAL O RDERABLES Final Result [facility] ([place]) 1 [facility] Department [place] [address] * (ABNORMAL) Drugs of Abuse Screen, Urine without Confirmation (07/15/2025 8:25 AM CDT) Amphetamine, ur Screen Positive, presumptive (A) CutOff 500ng/mL [facility] ([place]) Comment: Interpretive Data - Amphetamines: Samples containing greater than 500 ng/mL d-methamphetamine or other cross-reacting amphetamine compounds are reported as positive. Amphetamine immunoassays are subject to significant false positive rates due to cross-reactivity of non-amphetamine drugs. Confirmatory testing required for definitive results. Current Interpretive Data was last reviewed 2023. Barbiturates, ur Not Detected CutOff 200ng/mL [facility] ([place]) Comment: Interpretive Data - Barbiturates: Samples containing greater than 200 ng/mL secobarbital or other cross-reacting barbiturate compounds are reported as positive. False positive and false negative results are possible. Confirmatory testing required for definitive results. Current Interpretive Data was last reviewed 2023. Benzodiazepines, ur Not Detected CutOff 100ng/mL [facility] ([place]) Comment: Interpretive Data - Benzodiazepines: Samples containing greater than 100 ng/mL nordiazepam or other cross-reacting compounds are reported as positive. False positive and false negative results are possible. Confirmatory testing required for definitive results. Current Interpretive Data was last reviewed 2023. Cannabinoids, ur Not Detected CutOff 50 ng/mL [facility] ([place]) Comment: Interpretive Data - Cannabinoids: Samples containing greater than 50 ng/mL delta-9 THC -COOH or other cross- reacting compounds are reported as positive. False positive and false negative results are possible. Confirmatory testing required for definitive results. Current Interpretive Data was last reviewed 2023. Cocaine, ur Not Detected CutOff 150ng/mL [facility] ([place]) Comment: Interpretive Data - Cocaine: Samples containing greater than 150 ng/mL benzoylecgonine or other cross- reacting compounds are reported as positive. False positive and false negative results are possible. Confirmatory testing required for definitive results. Current Interpretive Data was last reviewed 2023. Fentanyl, Ur Screen Positive, presumptive (A) CutOff 5 ng/mL [facility] ([place]) Comment: Interpretive Data - Fentanyl: Samples containing greater than 5 ng/mL norfentanyl, fentanyl, or other cross-reacting fentanyl compounds are reported as positive. False positive and false negative results are possible. Confirmatory testing required for definitive results. Current Interpretive Data was last reviewed 2023. Methadone, ur Not Detected CutOff 300ng/mL [facility] ([place]) Comment: Interpretive Data - Methadone: Samples containing greater than 300 ng/mL d,l-methadone or other cross-reacting compounds are reported as positive. False positive and false negative results are possible. Confirmatory testing required for definitive results. Current Interpretive Data was last reviewed 2023. Opiates, ur Not Detected CutOff 300ng/mL [facility] ([place]) Comment: Interpretive Data - Opiates: Samples containing greater than 300 ng/mL morphine or other cross-reacting compounds are reported as positive. False positive and false negative results are possible. Confirmatory testing required for definitive results. Current Interpretive Data was last reviewed 2023. Oxycodone, ur NOT DETECTED CutOff 100ng/mL [facility] ([place]) Comment: Interpretive Data - Oxycodone: Samples containing greater than 100 ng/mL oxycodone or other cross-reacting compounds are reported as positive. False positive and false negative results are possible. Confirmatory testing required for definitive results. Current Interpretive Data was last reviewed 2023. Phencyclidine, ur Not Detected CutOff 25 ng/mL [facility] ([place]) Comment: Interpretive Data - Phencyclidine: Samples containing greater than 25 ng/mL phencyclidine or other cross-reacting compounds are reported as positive. False positive and false negative results are possible. Confirmatory testing required for definitive results. Current Interpretive Data was last reviewed 2023. Urine Creatinine 95 mg/dL GRISELDA [facility] ([place]) Comment: Interpretive Data Urine Creatinine: < 10 mg/dL is extremely dilute = or > 10 but < 20 mg/dL is dilute = or > 20 mg/dL is normal Current Interpretive Data was last revised on 2018. Urine 07/15/2025 8:25 AM CDT 07/15/2025 8:32 AM CDT Narrative [facility] ([place]) - 07/15/2025 9:00 AM CDT Drug of Abuse screening is performed by immunoassay for medical purposes only. This is not to be used for Pain Management purposes. Edd Moore MD LAB URINE ORDERABLES Final R esult Performing Organization Address [facility] Co de Phone Number [facility] ([place] [address] [facility] [place] [address] * (ABNORMAL) Urinalysis, microscopic only (07/15/2025 8:25 AM CDT) WBC, ur 11-20(A) 0 - 5 /HPF RBC, ur 21-50(A) 0 - 2 /HPF [facility] ([place]) Epithelial cells, squamous, ur 1-5 0 - 5 /HPF [facility] ([place]) Bacteria, ur Trace(A) [facility] ([place]) Mucous, ur Present(A) [facility] A ([place]) Culture Reflex Comment Reflex to urine culture will be performed. [facility] ([place]) Urine 07/15/2025 8:25 AM CDT 07/15/2025 10:06 AM CDT Edd Moore MD LAB URINE ORDERABLES Final R esult Performing Organization Address [facility] Co de Phone Number [facility] ([place]) [address] [facility] [place] [address] * Urine culture Urine (07/15/2025 8:25 AM CDT) Report Final Report: No growth Comment:Testing performed by : [facility], [address] [facility], [place]., [address] Urine 07/15/2025 8:25 AM CDT 07/15/2025 11:54 AM CDT Narrative [facility] ([place]) - 07/16/2025 12:34 PM CDT Urine culture reflexed based upon urinalysis results. Testing performed by [facility] ([phone]) Edd Moore MD LAB MICROBIOLOGY - GENERAL O RDERABLES Final Result [facility] [place] 1 [facility] Department [place] [address] from Last 3 Months Insurance [facility] [place] [address] [employer] [facility] Advance Directives For more information, please contact: [phone] * Full Code (Latest Code Status on File) Date Activated Date Inactivated Comments 05/02/2023 12:17 AM 05/05/2023 9:35 PM * Full Code Date Activated Date Inactivated Comments 04/30/2022 5:08 AM 05/01/2022 10:19 PM Care Teams Trial Management Associate Relationship Specialty Start Date End Date No, Physician PCP - General 05/01/23 Annalee Rogers, TINA [address] [address] Consulting Physician [facility]le S[facility] 05/05/23
== END 2025-09-07 12:28 | disposition short-term general hospital (02) ==
PROVIDERS: Emergency Provider Nurse Practitioner
DX: L03.115 Cellulitis of right lower limb (principal)
CPT/HCPCS: 99212; G0463